=== PATIENT | male | born 1995 | race Caucasian/White ===

== ENCOUNTER → 2017-02-27 | Outpatient (CLI) | payer BC ==
--- NOTE | 2017-02-27 09:07 | USB ---
Reason for exam: clinical finding. Indicated problem(s): lump or thickening in the right breast. Physical Findings: Nurse Summary: right breast 7 o'clock palpable 0.5 x 1cm, movable, non-tender (nurse ts). US Breast RT Right breast ultrasound includes all four quadrants, the retroareolar region and axilla. Finding demonstrates a 1.4 x 1.0 x 1.6cm hyperechoic lesion at 7 o'clock, probable lipoma. These results were verbally communicated with the patient and result sheet given to the patient on 02/27/17. ASSESSMENT: Benign, BI-RAD 2 RECOMMENDATION: Clinical management of the right breast. Manage patient on a clinical basis.
== END ==
LOC: RADUSWWP 08:14
PROVIDERS: ATTEND Family Medicine
DX: N63 Unspecified lump in breast (principal)

== ENCOUNTER → 2017-04-03 | Day surgery (SDC) | payer BC ==
[~2017-04-03] MED LIST: ALPRAZolam 0.25 MG TAB ONE; BACITRACIN OINT 1 EACH PACKET TOPICAL ONE; LIDOCAINE 1% INJ 10MG/ML (20 ML MDV) ONE
--- NOTE | 2017-04-03 13:17 | USB ---
EXAMINATION TYPE: US biopsy breast VAD RT DATE OF EXAM: 04/03/2017 CLINICAL HISTORY: N63 Breast Lump or Mass. Biopsy requested by ordering surgeon. TECHNIQUE: Ultrasound guided core biopsy of right breast. COMPARISON: Prior right breast ultrasound February 27, 2017. FINDINGS: The procedure of ultrasound guided core biopsy was explained to the patient. Benefits, alternatives, and risks were discussed. An informed consent was then obtained. The patient was placed in supine positioning for imaging and for the procedure. Preprocedure imaging redemonstrates vague hyperechoic area just below skin surface 7:00 position zone A in the right breast stable or slightly less prominent versus prior study The overlying skin was prepped and draped in usual sterile fashion. Lidocaine buffered with bicarbonate was used as anesthetic into the skin and subcutaneous tissue up to area of concern in the right breast. A amanda was made with surgical scalpel. Under ultrasound guidance, a 12-gauge vacuum assisted biopsy gun device was used to obtain 2 core samples. The patient tolerated the procedure well without any immediate complication. The patient was kept in the radiology department for short stay after the procedure and then discharged home in stable condition. Biopsy clip was not deployed as lesion is strongly favored to be benign and is still visualized after the procedure by ultrasound. IMPRESSION: Successful, uncomplicated ultrasound guided core biopsy of area of concern in the right breast, full pathology results to follow. Very low index of suspicion noted at time of procedure. Pathology Results: Concordant BREAST, RIGHT, ULTRASOUND GUIDED CORE BIOPSY: VASCULARIZED FIBROADIPOSE TISSUE WITH FAT NECROSIS, FIBROSIS AND CHRONIC AND HISTIOCYTIC INFLAMMATION. BREAST ELEMENTS ARE NOT IDENTIFIED. FIBROPLASIA. Recommendation No follow up needed. See referring breast surgeon. MTDD
== END ==
LOC: RADUSWWP 11:25
PROVIDERS: ATTEND Surgery
DX: N64.1 Fat necrosis of breast (principal); N60.31 Fibrosclerosis of right breast; N61.0 Mastitis without abscess
CPT/HCPCS: 88305; 19083; J2001